=== PATIENT | male | born 1965 | race African-American/Black ===

== ENCOUNTER 2017-06-24 07:44 | Day surgery (SDC) | payer BC ==
[~2017-06-24] VITALS: Ht 170.2 cm; Wt 53.6 kg
[2017-06-24] MEDS ORDERED: AMLODIPINE (08:17)
[2017-06-24 08:21] VITALS: Ht 170.2 cm; Wt 53.6 kg
[2017-06-24 08:51] VITALS: BP 185/95; PULSE 52; RESP 18
[2017-06-24] MEDS ORDERED: PROPOFOL 60 ML ONE (09:00)
[2017-06-24] MEDS ORDERED: LIDOCAINE 2% (SDV) 5 ML INJ ONE (09:01)
--- NOTE | 2017-06-24 09:31 | OPPN ---
Date/Time of Note Date/Time of Note DATE: 06/24/17 TIME: 09:26 Proc Note GI Procedure date: Jun 24, 2017 Pre-procedure Diagnosis Rule out colon polyps this is a screening colonoscopy Post-procedure Diagnosis Minimal external hemorrhoids Operation Performed Colonoscopy Anesthesiologist: YAZMIN RAZA Estimated blood loss: none Transfusion Required: no Specimen: none Grafts/Implants: none Grafts/Implants None Tubes/Drains None Complications: no Pt Condition post procedure: stable Disposition: PACU Indications Rule out colon polyps Operative\Procedure Findings After informed written consent is obtained patient was ostial in the left lateral side intravenous anesthesia was given by anesthesiology Dr. Raza when the patient become somnolent Olympus videocolonoscope was introduced into the rectum and advanced all the way to the cecum Entire colon appeared normal except minimal brown liquid stool No major polyps noted small polyps cannot be excluded On the view with minimal external hemorrhoids were noted. At this time procedure was terminated And recommend repeat colonoscopy in 10 years cc; CARMEN Delarosa MD Jun 24, 2017 09:31
== END 2017-06-24 11:00 | disposition home or self-care (01) ==
LOC: GIL 07:44
PROVIDERS: ATTEND Internal Medicine Gastroenterology
DX: Z12.11 Encounter for screening for malignant neoplasm of colon (principal); K64.4 Residual hemorrhoidal skin tags; I10 Essential (primary) hypertension
CPT/HCPCS: 45378; Z7610